=== PATIENT | male | born 1985 | race Caucasian/White ===

== ENCOUNTER → 2021-11-20 | Outpatient (CLI) | payer OTHER, SELFPAY | END | disposition home or self-care (01) | LOC: LABSPEC 13:16 | PROVIDERS: Referring Provider Physician Assistant Surgical; Visit Provider Physician Assistant Surgical | DX: Z11.52 Encounter for screening for COVID-19 (principal) | CPT/HCPCS: 87635; U0005; U0003 ==

== ENCOUNTER → 2021-11-21 | Outpatient (CLI) | payer OTHER, SELFPAY | END | disposition home or self-care (01) | LOC: LABSPEC 12:53 | PROVIDERS: Visit Provider Physician Assistant | DX: Z11.52 Encounter for screening for COVID-19 (principal) | CPT/HCPCS: 87635; U0005; U0003 ==

== ENCOUNTER → 2022-06-05 | Outpatient (CLI) | payer OTHER, SELFPAY ==
[2022-06-05 18:01] LABS: Absolute Lymphocyte Count 1.36 X10^3/uL (0.83-4.51); Absolute Neutrophil Count 2.1 X10^3/uL (2.0-7.7); Basophil# 0.03 X10^3/uL; Basophil% 0.7 % (0-1); Eosinophil# 0.08 X10^3/uL; Hematocrit 42.4 % (40-54); Hemoglobin 14.7 g/dL (13.0-16.5); Lymphocyte # 1.36 X10^3/ul (0.83-4.51); Lymphocyte % 33.5 % (19-41); Mean Corp Hgb Conc 34.7 g/dL (32-36); Mean Corpuscular Hgb 30.4 pg (27.0-32.0); Mean Corpuscular Volume 87.8 fL (80-94); Monocyte# 0.52 X10^3/uL; Monocyte% 12.8 % (0-10); NRBC Flagged by Analyzer 0 % (0-5); Neutrophil # 2.07 X10^3/uL (2.7-7.7); Platelet Count 246 K/mm3 (150-450); RBC Distribution Width CV 11.8 % (11.6-14.6); RBC Distribution Width SD 37.9 fl (35.1-43.9); Red Blood Count 4.83 M/mm3 (4.6-6.2); White Blood Count 4.1 K/mm3 (4.4-11.0)
[2022-06-05 18:44] LABS: Vitamin B12 454 pg/mL (211-911); Vitamin D,25 Hydroxy 44.4 ng/mL
[2022-06-05 18:46] LABS: ALB/GLOB Ratio 1.3 RATIO (0.9-2.4); AST(SGOT) 25 U/L (15-37); Alanine Aminotransfer ALT/SGPT 33 U/L (16-61); Albumin, Serum 4.1 g/dL (3.2-5.0); Alkaline Phosphatase 57 U/L (45-117); Anion Gap 6 (5-15); BUN 15 mg/dL (7-18); BUN/Creat Ratio 14.6 RATIO (10-20); Calcium,Total 8.6 mg/dL (8.5-10.1); Chloride 103 mmol/L (98-107); Creatinine, Serum 1.03 mg/dL (0.70-1.30); EST Glomerular Filtration Rate 88 mL/min (>60); Est Glom Filt Rate - Afr Amer 106 mL/min (>60); Globulin 3.1 g/dL (2.2-4.2); Glucose 89 mg/dL (74-106); Potassium 3.7 mmol/L (3.5-5.1); Protein, Total 7.2 g/dL (6.4-8.2); Sodium Level 138 mmol/L (136-145)
== END | disposition home or self-care (01) ==
LOC: MFPLAB 16:35
PROVIDERS: PCP Nurse Practitioner Family; Referring Provider Nurse Practitioner Family; Visit Provider Nurse Practitioner Family
DX: R53.83 Other fatigue (principal); N52.9 Male erectile dysfunction, unspecified
CPT/HCPCS: 36415; 80053; 82306; 82607; 84403; 84443; 85025

== ENCOUNTER 2025-02-07 12:27 | Day surgery (SDC) | payer OTHER, SELFPAY ==
[2025-02-07] VITALS (8 sets, daily range): BP systolic 104–137; BP diastolic 79–89; PULSE 66–80; RESP 16–20; TEMP 36.2–36.6; O2SAT 97–100; BMI 27.6
--- NOTE | 2025-02-07 13:06 | PCM.HP.STD ---
HPI - General General Date of Admission: 02/07/25 Date of Service: 02/07/25 Chief Complaint: EGD/ colonoscopy HPI Narrative The patient is a 39-year-old male who is being seen today for a colonoscopy. He recently underwent fecal occult blood testing of his stool as part of a yearly work physical. He was found to be positive for fecal occult blood. He denies any macey blood in his stools. No black or tarry stools. No family history of colon polyps or colon cancers. He states his bowel movements are generally quite regular he has never had a previous colonoscopy [facility] Medical History (Updated 02/03/25 @ 10:21 by Sonja Quintana) Anxiety Heartburn Non-smoker Occult blood in stools Home Medications ?Medication ?Instructions ?Recorded ?Last Taken ?Type NK 02/03/25 Unknown History Allergy/AdvReac Type Severity Reaction Status Date / Time No Known Allergies Allergy Verified 02/07/25 12:43 Surgical History [place] teeth extracted Social History Smoking Status: Never smoker alcohol intake: current alcohol intake frequency: holidays/special occasions only substance use type: does not use Vital Signs Vital Signs Vital Signs: 02/07/25 12:44 02/07/25 12:44 Temperature 97.9 F Temperature Source Temporal Pulse Rate 80 Respiratory Rate 16 Respiratory Pattern Normal Blood Pressure 137/87 H Blood Pressure Mean 103 Blood Pressure Source Monitor Blood Pressure Position Semi-Fowlers Blood Pressure Location Left Arm Pulse Ox 100 Oxygen Delivery Method Room Air Weight Weight: 208 lb 15.971 oz Body Mass Index (BMI) 27.6 Physical Exam Const alert, oriented x3 and no apparent distress Assessment & Plan Assessment/Plan (1) Occult blood in stools: PLAN: Plan EGD/colonoscopy today
--- NOTE | 2025-02-07 13:16 | PRE.ANES_ITS ---
ASA Classification* ASA Classification ASA Classification: 1 Assessment & Plan Anesthesia* Anesthesia Assessment Anesthesia Assessment: Discussed sedation and/or anesthesia options, risks, benefits, and alternatives with patient/parents/legal guardian/POA. Questions invited. The patient/parents/legal guardian/POA seems to understand and agrees to proceed with anesthesia plan. Reviewed the physical assessment, medical history, allergy history and patient home medications list prior to surgery/procedure/anesthetic and documented any changes. Performed airway and anesthesia risk assessments. Anesthesia Type Anesthesia Type: MAC History Source History Obtained from:: Patient and Chart Anesthesia Focused Assessment* Temperature: 97.9 F Pulse Rate: 80 Blood Pressure: 137/87 Respiratory Rate: 16 Pulse Ox: 100 Oxygen Delivery Method: Room Air Airway Assessment Mouth opens: >3 cm Mallampati Score: II Teeth Condition: Intact Neck Range of motion (ROM): Full ROM Focused Labs Anesthesia Preop lab: CBC WBC 3.8 K/mm3 (4.4-11.0) L 08/31/24 09:47 08/31/24 RBC 5.28 M/mm3 (4.6-6.2) 08/31/24 09:47 08/31/24 Hgb 15.9 g/dL (13.0-16.5) 08/31/24 09:47 08/31/24 Hct 46.6 % (40-54) 08/31/24 09:47 08/31/24 Plt Count 251 K/mm3 (150-450) 08/31/24 09:47 08/31/24 CHEMISTRY Potassium 4.2 mmol/L (3.5-5.1) 08/31/24 09:47 08/31/24 Sodium 137 mmol/L (136-145) 08/31/24 09:47 08/31/24 BUN 13 mg/dL (7-18) 08/31/24 09:47 08/31/24 Creatinine 1.10 mg/dL (0.70-1.30) 08/31/24 09:47 08/31/24 Glucose 96 mg/dL (74-106) 08/31/24 09:47 08/31/24 TSH 0.90 uIU/mL (0.358-3.74) 06/05/22 16:36 COAG Pre-Assessment Diagnosis/Proposed Procedure Planned Operative Procedure(s): COLONOSCOPY EGD Anesthesia History Anesthesia History - adult school counselor: Anesthesia History - adult school counselor Hx Hospitalization No 02/03/25 10:21 Any Problems With Anesthesia No 02/03/25 10:21 Cholinesterase deficiency No 02/03/25 10:21 You/Your Family Experience No 02/03/25 10:21 fever (hyperthermia) with Relationship Recent Exposure to Contagious No 02/07/25 12:44 Disease Does patient have nerve No 02/03/25 10:21 stimulator Patient instructed to have device shut off --Does patient have Pacemaker No 02/07/25 12:44 or ICD? When Was Last Pacemaker Check QUESTION #4 FULL TEXT: You/Your Family Experience fever (hyperthermia) with Anesthesia Last Oral Intake Last Oral intake: Last Oral Intake NPO since 10:30 02/07/25 12:44 Meds taken in AM with sips of No 02/07/25 12:44 water? Meds patient instructed to take am of surgery Any additional information?: Yes NPO since: 00:00 PONV PONV - adult school counselor: PONV - adult school counselor Female No 02/03/25 10:21 HX of Motion Sickness No 02/03/25 10:21 HX of N/V After Surgery No 02/03/25 10:21 Non-Smoker No 02/03/25 10:21 Duration of Surgery greater Yes 02/03/25 10:21 than 60 minutes Number of Risk Factors 1 02/03/25 10:21 PONV Score Low Risk 02/03/25 10:21 Height & Weight Height & Weight: Anesthesia: Height & Weight Height 6 ft 1 in 02/07/25 12:44 Weight: 94.8 kg 02/07/25 12:44 Body Mass Index (BMI) 27.6 02/07/25 12:44 Respiratory Assessment Respiratory Assessment - adult school counselor: Respiratory Tract Infection Hx - adult school counselor Hx Respiratory Tract Infection Yes: COUGH 02/03/25 10:21 STOP Sleep Apnea STOP Sleep Apnea - adult school counselor: STOP Sleep Apnea - adult school counselor Hx Hypertension No 02/03/25 10:21 Hx Sleep Apnea No 02/03/25 10:21 CPAP BIPAP Do you snore loudly (louder No 02/03/25 10:21 than talking or can be heard Do you often feel tired/ No 02/03/25 10:21 fatigued/ sleepy during daytime? Has anyone observed you stop No 02/03/25 10:21 breathing during sleep? STOP Results Negative 02/03/25 10:21 QUESTION #5 FULL TEXT : Do you snore loudly (louder than talking or can be heard through closed doors)? 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 Specify any problems Hx of Preganancy in last 3 N/A 02/03/25 10:21 Months Nurse Filling Out Transfusion JZOLLINGE 02/03/25 10:21 & Questions: Date: 02/03/25 02/03/25 10:21 Time: 10:26 02/03/25 10:21 Patient unable to answer at this time (ie. confused, unrespo /Reproduction History /Reproductive History - adult school counselor: /Reproductive Hx- adult school counselor Hx Now No 02/03/25 10:21 Gestational Age (in weeks): EDC: Hx Hx Para Hx Section SAB No 02/03/25 10:21 PFSH Medical History Anxiety Heartburn Non-smoker Occult blood in stools Home Medications ?Medication ?Instructions ?Recorded ?Last Taken ?Type NK 02/03/25 Unknown History Allergy/AdvReac Type Severity Reaction Status Date / Time No Known Allergies Allergy Verified 02/07/25 12:43 Surgical History [place] teeth extracted Social History Smoking Status: Never smoker alcohol intake: current alcohol intake frequency: holidays/special occasions only substance use type: does not use Review of Systems (Anesthesia) ROS Narrative System reviewed and no additional complaints, except as documented.
--- NOTE | 2025-02-07 13:30 | EGD_PTH ---
PATIENT: YAEL NICHOLSON LOC: EN U#:[id number] AGE/SX: 39/M ROOM: RE02/07/[address]: Dr. Howard Whelan MD : 1985 BED: DIS: 02/07/2025 SPEC #: [id number] RECD: 02/08/25 10:19 STATUS: ZULEIKA ROHITH #: [id number] JOSE: 02/07/25 13:[address]: Howard Whelan DEPT: SURGICAL PATHOLOGY RECD BY: Trev Denis ENTERED: 02/08/25 10:19 SP TYPE: EGD BIOPSY OTHR DR: Julienne Gruber MD Tissues: A - Gastric mucous membrane B - Esophagus, NOS C - COLON BIOPSY Procedures: Immunohistochemical Stains Surgery Specimen Level IV HEADER OPERATION: Colonoscopy with biopsy, EGD with biopsy PRE-OP DIAGNOSIS: Occult blood in stools TISSUE SUBMITTED: A- Antrum biopsy, B- Gastroesophageal junction biopsy, C- Sigmoid colon polyp biopsy MICROSCOPIC DIAGNOSIS A. Stomach, antrum, biopsy: * Active chronic gastritis. * IHC is POSITIVE for H pylori. B. Esophagus, GE junction, biopsy: * Benign squamous mucosa. * No columnar mucosa seen. C. Colon, sigmoid, polyp, biopsy: * Tubular adenoma. MICROSCOPIC DESCRIPTION Slides are reviewed. These tests were developed and their performance characteristics determined by [facility]. They may not have been cleared or approved by the U.S. Food and Drug Administration. The FDA has determined that such clearance or approval is not necessary. The above immunohistochemical/dualISH markers are ordered and reviewed by the Pathologist. GROSS DESCRIPTION A. Received in fixative is one container labeled with the patient's name and designated Antrum biopsy. The specimen consists of two irregular fragments of light jacinto soft tissue that in aggregate measure 0.6 x 0.3 x 0.1 cm. The specimen is totally submitted in one cassette. B. Received in fixative is one container labeled with the patient's name and designated GE junction biopsy. The specimen consists of one irregular fragment of light jacinto soft tissue that measures 0.7 x 0.2 x 0.2 cm. The specimen is totally submitted in one cassette. C. Received in fixative is one container labeled with the patient's name and designated Sigmoid colon polyp biopsy. The specimen consists of one irregular fragment of light jacinto soft tissue that measures 0.6 x 0.6 x 0.1 cm. The specimen is totally submitted in one cassette. 02/08/2025 CPT:[id number]
--- NOTE | 2025-02-07 14:11 | PCM.POST.ANE ---
Anesthesia: Postop Eval I Current Vital Signs Temperature: 97.9 F Pulse Rate: 78 Blood Pressure: 104/89 Respiratory Rate: 20 Pulse Ox: 99 Oxygen Delivery Method: Room Air Assessment Airway patent: Yes Spontaneous unlabored respirations: Yes Mental status: Awake and Calm nausea: No Vomiting: No Anesthesia Complication: No Fluid Hydration Crystalloid volume administer (ml): 30 Total IV fluid infused: 30 Progress Note Anesthesia document: Postop Eval 1 completed: Yes
--- NOTE | 2025-02-07 14:14 | OP.EGD_ITS ---
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 Patient has symptoms of acute heartburn. Complications: No immediate complications. Estimated blood loss: None. Procedure: Pre-Anesthesia Assessment: - Prior to the procedure, a History and Physical was performed, and patient medications and allergies were reviewed. The patient's tolerance of previous anesthesia was also reviewed. The risks and benefits of the procedure and the sedation options and risks were discussed with the patient. All questions were answered, and informed consent was obtained. Prior Anticoagulants: The patient has taken no anticoagulant or antiplatelet agents. ASA Grade Assessment: I - A normal, healthy patient. After reviewing the risks and benefits, the patient was deemed in satisfactory condition to undergo the procedure. After obtaining informed consent, the endoscope was passed under direct vision. Throughout the procedure, the patient's blood pressure, pulse, and oxygen saturations were monitored continuously. The gastroscope was introduced through the mouth, and advanced to the duodenal bulb. The upper GI endoscopy was accomplished without difficulty. The patient tolerated the procedure well. Moderate Sedation: See the other procedure note for documentation of moderate sedation with intraservice time. Scope In: 1:29:45 PM Scope Out: 1:35:43 PM Total Procedure Duration Time 0 hours 5 minutes 58 seconds Findings: The entire examined stomach was normal. Biopsies were taken with a cold forceps for Helicobacter pylori testing. The examined esophagus was normal. Mucosa was biopsied with a cold forceps for histology randomly at the gastroesophageal junction. Verification of patient identification for the specimen was done by the nurse using the patient's name, date and medical record number. Impression: - Normal stomach. Biopsied. - Normal esophagus. Biopsied. Recommendation: - Discharge patient to home (ambulatory). - Resume previous diet. - Continue present medications. Howard Whelan MD 02/07/2025 2:13:43 PM This report has been signed electronically. Number of Addenda: 0 Note Initiated On: 02/07/2025 1:05 PM
--- NOTE | 2025-02-07 14:14 | OP.CCLET_ITS ---
02/07/2025 Julienne Gruber Md Re : Upper GI endoscopy procedure for Cb Tucker Nivia Gruber This procedure was performed on Friday, February 07, 2025. My impressions and recommendations are as follows: Impressions : - Normal stomach. Biopsied. - Normal esophagus. Biopsied. Recommendations : - Discharge patient to home (ambulatory). - Resume previous diet. - Continue present medications. My findings are described in the full procedure note, which is enclosed. If I can be of further assistance, please feel free to contact me at . Sincerely, Howard Whelan MD 02/07/2025 2:13:43 PM This report has been signed electronically.
--- NOTE | 2025-02-07 14:18 | OP.COLON_ITS ---
Patient Name: Cb Tucker Procedure Date: 02/07/2025 1:36 PM Date of : 1985 Age: 39 Procedure: Colonoscopy Indications: Positive fecal immunochemical test Providers: Howard Whelan MD Referring MD: Howard Whelan MD Medicines: Monitored Anesthesia Care Patient Profile: Refer to note in patient chart for documentation of history and physical. Patient has symptoms of acute heartburn. Last Colonoscopy: none. The patient's first colonoscopy is today. Complications: No immediate complications. Estimated blood loss: Minimal. Procedure: Pre-Anesthesia Assessment: - Prior to the procedure, a History and Physical was performed, and patient medications and allergies were reviewed. The patient's tolerance of previous anesthesia was also reviewed. The risks and benefits of the procedure and the sedation options and risks were discussed with the patient. All questions were answered, and informed consent was obtained. Prior Anticoagulants: The patient has taken no anticoagulant or antiplatelet agents. ASA Grade Assessment: I - A normal, healthy patient. After reviewing the risks and benefits, the patient was deemed in satisfactory condition to undergo the procedure. After I obtained informed consent, the scope was passed under direct vision. Throughout the procedure, the patient's blood pressure, pulse, and oxygen saturations were monitored continuously. The adult colonoscope was introduced through the anus and advanced to the cecum, identified by appendiceal orifice and ileocecal valve. The ileocecal valve, appendiceal orifice, and rectum were photographed. The entire colon was well visualized. The colonoscopy was performed without difficulty. The patient tolerated the procedure well. The quality of the bowel preparation was adequate. Scope In: 1:38:08 PM Scope Withdrawal Time 0 hours 15 minutes 11 seconds Scope Out: 2:04:05 PM Total Procedure Duration Time 0 hours 25 minutes 57 seconds Findings: The perianal and digital rectal examinations were normal. A 3 mm polyp was found in the sigmoid colon. The polyp was semi-sessile. The polyp was removed with a cold biopsy forceps. Resection and retrieval were complete. Verification of patient identification for the specimen was done by the nurse using the patient's name, date and medical record number. The exam was otherwise without abnormality on direct and retroflexion views. Impression: - One 3 mm polyp in the sigmoid colon, removed with a cold biopsy forceps. Resected and retrieved. - The examination was otherwise normal on direct and retroflexion views. Recommendation: - Discharge patient to home (ambulatory). - High fiber diet. - Continue present medications. - Await pathology results. - Repeat colonoscopy in 5 years for surveillance. - Return to my office PRN. Procedure Code(s): --- Professional --- 24827, Colonoscopy, flexible; with biopsy, single or multiple Diagnosis Code(s): --- Professional --- R19.5, Other fecal abnormalities D12.5, Benign neoplasm of sigmoid colon CPT copyright 2021 [employer]. All rights reserved. The codes documented in this report are preliminary and upon core cleaner review may be revised to meet current compliance requirements. Howard Whelan MD 02/07/2025 2:18:07 PM This report has been signed electronically. Number of Addenda: 0 Note Initiated On: 02/07/2025 1:36 PM
--- NOTE | 2025-02-07 14:19 | OP.CCLET_ITS ---
02/07/2025 Julienne Gruber Md Re : Colonoscopy procedure for Cb Gonzáles Allyn This procedure was performed on Friday, February 07, 2025. My impressions and recommendations are as follows: Impressions : - One 3 mm polyp in the sigmoid colon, removed with a cold biopsy forceps. Resected and retrieved. - The examination was otherwise normal on direct and retroflexion views. Recommendations : - Discharge patient to home (ambulatory). - High fiber diet. - Continue present medications. - Await pathology results. - Repeat colonoscopy in 5 years for surveillance. - Return to my office PRN. My findings are described in the full procedure note, which is enclosed. If I can be of further assistance, please feel free to contact me at . Sincerely, Howard Whelan MD 02/07/2025 2:18:07 PM This report has been signed electronically.
--- NOTE | 2025-02-07 17:59 | POSTOPAN2_ITS ---
Anesthesia Postop Eval I Sum Postop Eval Completion status Anesthesia document: Postop Eval 1 completed: Yes Anesthesia Postop Eval I Summary Anesthesia Postop Eval I Summary: Anesthesia Postop Eval I: Assessment Summary Airway patent Yes 02/07/25 14:12 REAL [email or web address] Spontaneous unlabored Yes 02/07/25 14:12 REAL [email or web address] respirations Mental status Awake,Calm 02/07/25 14:12 REAL [email or web address] nausea No 02/07/25 14:12 REAL [email or web address] Vomiting No 02/07/25 14:12 [email or web address] Anesthesia Postop Eval I: Fluid Summary Crystalloid volume administer 30 02/07/25 14:12 [email or web address] (ml) Colloids volume administered ( ml) Blood Product volume administered (ml) Total IV fluid infused 30 02/07/25 14:12 [email or web address] Anesthesia Postop Eval I: Summary Notes Anesthesia Complication No 02/07/25 14:12 [email or web address] Anesthesia Complication Comment: Post-operative progress note Anesthesia: Postop Eval II Evaluation Mental status: Awake and Calm Pain Level: 0 nausea: No Vomiting: No Complications Anesthesia Complication: No
--- NOTE | 2025-02-07 17:59 | PCM.POSTANE2 ---
Anesthesia Postop Eval I Sum Postop Eval Completion status Anesthesia document: Postop Eval 1 completed: Yes Anesthesia Postop Eval I Summary Anesthesia Postop Eval I Summary: Anesthesia Postop Eval I: Assessment Summary Airway patent Yes 02/07/25 14:12 [email or web address] Spontaneous unlabored Yes 02/07/25 14:12 [email or web address] respirations Mental status Awake,Calm 02/07/25 14:12 [email or web address] nausea No 02/07/25 14:12 [email or web address] Vomiting No 02/07/25 14:12 [email or web address] Anesthesia Postop Eval I: Fluid Summary Crystalloid volume administer 30 02/07/25 14:12 [email or web address] (ml) Colloids volume administered ( ml) Blood Product volume administered (ml) Total IV fluid infused 30 02/07/25 14:12 [email or web address] Anesthesia Postop Eval I: Summary Notes Anesthesia Complication No 02/07/25 14:12 [email or web address] Anesthesia Complication Comment: Post-operative progress note Anesthesia: Postop Eval II Evaluation Mental status: Awake and Calm Pain Level: 0 nausea: No Vomiting: No Complications Anesthesia Complication: No
== END 2025-02-07 14:57 | disposition home or self-care (01) ==
LOC: EN 12:28 → AC 12:29
PROVIDERS: PCP Family Medicine; Referring Provider Surgery; Visit Provider Surgery
PROC: 0DJD8ZZ Inspection of Lower Intestinal Tract, Via Natural or Artificial Opening Endoscopic (ICD-10-PCS; CPT 45378; principal; 2025-02-07 13:25)
DX: K29.50 Unspecified chronic gastritis without bleeding (principal); B96.81 Helicobacter pylori [H. pylori] as the cause of diseases classified elsewhere; D12.5 Benign neoplasm of sigmoid colon; R12 Heartburn; Z79.899 Other long term (current) drug therapy
CPT/HCPCS: 45380; 43239; 88305; 88342; J2405

== ENCOUNTER 2025-04-10 15:27 | Emergency (ER) | payer OTHER, SELFPAY ==
[2025-04-10] VITALS (13 sets, daily range): BP systolic 100–148; BP diastolic 64–91; PULSE 59–118; RESP 10–20; TEMP 36.1–36.8; O2SAT 95–100; BMI 28.8
--- NOTE | 2025-04-10 15:51 | EKG12_ITS ---
Test Reason : NEW ONSET AFIB Blood Pressure : */* mmHG Vent. Rate : 129 BPM Atrial Rate : * BPM P-R Int : * ms QRS Dur : 90 ms QT Int : 308 ms P-R-T Axes : * 94 0 degrees QTcB Int : 451 ms Atrial fibrillation with rapid ventricular response Rightward axis Abnormal ECG Confirmed by FANG DOUGHERTY, MARTA ([id number]), development editor BRITTANY CRESPO ([id number]) on 04/11/2025 9:29:31 AM Referred By: Duane Ashby Confirmed By: MARTA HEADLEY MD
[2025-04-10 16:00] LABS: Absolute Lymphocyte Count 1.82 X10^3/uL (0.83-4.51); Absolute Neutrophil Count 3.7 X10^3/uL (2.0-7.7); Basophil# 0.04 X10^3/uL; Basophil% 0.6 % (0-1); Eosinophils% 3.2 % (0-5); Hematocrit 44.7 % (40-54); Hemoglobin 15.8 g/dL (13.0-16.5); Lymphocyte # 1.82 X10^3/ul (0.83-4.51); Lymphocyte % 28.7 % (19-41); Mean Corp Hgb Conc 35.3 g/dL (32-36); Mean Corpuscular Hgb 30.8 pg (27.0-32.0); Mean Corpuscular Volume 87.1 fL (80-94); Mean Platelet Vol. 10.1 fl (6.2-12.0); Monocyte# 0.56 X10^3/uL; Monocyte% 8.8 % (0-10); NRBC Flagged by Analyzer 0 % (0-5); Neutrophil % 58.4 % (47-70); Platelet Count 276 K/mm3 (150-450); RBC Distribution Width CV 11.6 % (11.6-14.6); RBC Distribution Width SD 37.5 fl (35.1-43.9); Red Blood Count 5.13 M/mm3 (4.6-6.2); White Blood Count 6.3 K/mm3 (4.4-11.0)
--- NOTE | 2025-04-10 16:00 | RAD_ITS ---
PROCEDURE: CHEST PA AND LATERAL 04/10/2025 REASON FOR EXAM: NEW A. FIB TECHNIQUE: Frontal and lateral views of the chest. COMPARISON: None FINDINGS: Hardware: None Heart: The heart size is normal. Mediastinum: The mediastinal contour is unremarkable. Lungs: The lungs are clear. Bones: The bones are unremarkable. RAD/Chest PA and Lateral IMPRESSION: NO ACUTE FINDINGS. Reading Location: [facility]
[2025-04-10] MEDS: 0.9% Normal Saline (1000mL) 1,000 ML 999 ML IV (16:01)
--- NOTE | 2025-04-10 16:07 | ED.VIS.CHEST ---
HPI History of Present Illness Chief Complaint: Palpitations Narrative Narrative: Patient is a 39-year-old male past medical history anxiety, GERD who presented to the emergency department chief complaint of palpitations. Patient states that he woke up this morning noted that he felt fluttering in his chest and had some shortness of breath associate with this when he went up stairs. 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 Patient states that otherwise he been feeling fine he went to bed feeling well. He states occasionally he will have feeling of an extra beat in his chest but this has been going off and on for a significant mount time. Patient denies recent travel history denies any history of blood clots. [facility] Medical History Anxiety Heartburn Non-smoker Occult blood in stools Home Medications ?Medication ?Instructions ?Recorded ?Last Taken ?Type metoprolol tartrate 50 mg tablet 50 mg PO DAILY #30 tabs 04/10/25 Unknown Rx Allergy/AdvReac Type Severity Reaction Status Date / Time No Known Allergies Allergy Verified 04/10/25 15:27 Family History no significant family his Surgical History [place] teeth extracted Social History Smoking Status: Never smoker alcohol intake: current alcohol intake frequency: holidays/special occasions only substance use type: does not use ROS ROS ED ROS Narrative Constitutional: Denies any fevers, chills, headaches Eyes: Denies change in vision double vision blurry vision Cardiovascular: Complains of palpitations as noted above denies chest pain Respiratory: Complains of shortness of breath as noted above denies coughing Abdomen: Denies abdominal pain nausea vomit diarrhea : Denies any urinary symptoms Neurological: Denies numbness, weakness, tingling Musculoskeletal: Denies back pain Skin: Denies any rashes or lesions EXAM Physical Exam Narrative Exam Narrative: General: Patient is lying in bed rest comfortably did not appear to be acute distress Head: Atraumatic, normocephalic Eyes: PERRL bilaterally, EOMI bilateral, no conjunctival injection noted Neck: Soft, supple, trachea midline Cardiovascular: Patient has an irregular irregular rhythm and tachycardic no murmurs gallops or rubs noted Respiratory: Clear to auscultation bilateral Abdomen: Soft, nondistended, nontender to palpation Extremities: +5/5 strength in the bilateral upper and lower extremity, radial pulse +2/4 in the bilateral extremities Neurological: Patient follow commands knew that he was at [facility] years 2024 Skin: Warm, dry, intact no rashes or lesions noted Const Vital Signs: 04/10/25 15:27 04/10/25 15:55 04/10/25 16:15 Temperature 97 F L Temperature Source Temporal Pulse Rate 112 H 118 H Pulse Rate [1 (Initial Baseline)] Pulse Rate [2] Pulse Rate [3] Pulse Rate [4] Respiratory Rate 20 H Respiratory Rate [1 (Initial Baseline)] Respiratory Rate [2] Respiratory Rate [3] Respiratory Rate [4] Blood Pressure 148/89 H 131/88 H Blood Pressure [1 (Initial Baseline)] Blood Pressure [2] Blood Pressure [3] Blood Pressure [4] Blood Pressure Mean 108 102 Baseline BP Pulse Ox 100 99 Oxygen Delivery Method Room Air Room Air Room Air Oxygen Delivery Method [1 (Initial Baseline)] Oxygen Delivery Method [2] Oxygen Delivery Method [3] Oxygen Delivery Method [4] Oxygen Flow Rate (L/min) Oxygen Flow Rate (L/min) [1 (Initial Baseline)] Oxygen Flow Rate (L/min) [2] Oxygen Flow Rate (L/min) [3] EtCo2 - Document during CPR and with ROSC EtCo2 - Document during CPR and with ROSC [1 (Initial Baseline)] EtCo2 - Document during CPR and with ROSC [2] EtCo2 - Document during CPR and with ROSC [3] EtCo2 - Document during CPR and with ROSC [4] 04/10/25 16:26 04/10/25 17:39 04/10/25 18:59 Temperature Temperature Source Pulse Rate 80 59 L 94 Pulse Rate [1 (Initial Baseline)] Pulse Rate [2] Pulse Rate [3] Pulse Rate [4] Respiratory Rate 16 Respiratory Rate [1 (Initial Baseline)] Respiratory Rate [2] Respiratory Rate [3] Respiratory Rate [4] Blood Pressure 131/88 H 113/73 119/71 Blood Pressure [1 (Initial Baseline)] Blood Pressure [2] Blood Pressure [3] Blood Pressure [4] Blood Pressure Mean 102 86 87 Baseline BP Pulse Ox 99 98 99 Oxygen Delivery Method Room Air Room Air Room Air Oxygen Delivery Method [1 (Initial Baseline)] Oxygen Delivery Method [2] Oxygen Delivery Method [3] Oxygen Delivery Method [4] Oxygen Flow Rate (L/min) Oxygen Flow Rate (L/min) [1 (Initial Baseline)] Oxygen Flow Rate (L/min) [2] Oxygen Flow Rate (L/min) [3] EtCo2 - Document during CPR and with ROSC EtCo2 - Document during CPR and with ROSC [1 (Initial Baseline)] EtCo2 - Document during CPR and with ROSC [2] EtCo2 - Document during CPR and with ROSC [3] EtCo2 - Document during CPR and with ROSC [4] 04/10/25 20:26 04/10/25 20:26 04/10/25 20:58 Temperature Temperature Source Pulse Rate 74 83 Pulse Rate [1 (Initial Baseline)] Pulse Rate [2] Pulse Rate [3] Pulse Rate [4] Respiratory Rate 13 Respiratory Rate [1 (Initial Baseline)] Respiratory Rate [2] Respiratory Rate [3] Respiratory Rate [4] Blood Pressure 121/75 H 127/89 H Blood Pressure [1 (Initial Baseline)] Blood Pressure [2] Blood Pressure [3] Blood Pressure [4] Blood Pressure Mean 101 Baseline BP 121/75 Pulse Ox 100 Oxygen Delivery Method Room Air Oxygen Delivery Method [1 (Initial Baseline)] Oxygen Delivery Method [2] Oxygen Delivery Method [3] Oxygen Delivery Method [4] Oxygen Flow Rate (L/min) Oxygen Flow Rate (L/min) [1 (Initial Baseline)] Oxygen Flow Rate (L/min) [2] Oxygen Flow Rate (L/min) [3] EtCo2 - Document during CPR and with ROSC 42 EtCo2 - Document during CPR and with ROSC [1 (Initial Baseline)] EtCo2 - Document during CPR and with ROSC [2] EtCo2 - Document during CPR and with ROSC [3] EtCo2 - Document during CPR and with ROSC [4] 04/10/25 21:04 04/10/25 21:17 04/10/25 21:22 Temperature Temperature Source Pulse Rate 67 63 Pulse Rate [1 (Initial Baseline)] 84 Pulse Rate [2] 84 Pulse Rate [3] 84 Pulse Rate [4] 73 Respiratory Rate 10 L 16 Respiratory Rate [1 (Initial Baseline)] 11 L Respiratory Rate [2] 11 L Respiratory Rate [3] 11 L Respiratory Rate [4] 12 Blood Pressure 127/91 H 120/80 Blood Pressure [1 (Initial Baseline)] 129/77 H Blood Pressure [2] 129/77 H Blood Pressure [3] 129/77 H Blood Pressure [4] 100/64 Blood Pressure Mean Baseline BP Pulse Ox 95 95 Oxygen Delivery Method Room Air Room Air Oxygen Delivery Method [1 (Initial Baseline)] Nasal Cannula Oxygen Delivery Method [2] Nasal Cannula Oxygen Delivery Method [3] Nasal Cannula Oxygen Delivery Method [4] Room Air Oxygen Flow Rate (L/min) 94 Oxygen Flow Rate (L/min) [1 (Initial Baseline)] 2 Oxygen Flow Rate (L/min) [2] 2 Oxygen Flow Rate (L/min) [3] 2 EtCo2 - Document during CPR and with ROSC EtCo2 - Document during CPR and with ROSC [1 (Initial Baseline)] 39 EtCo2 - Document during CPR and with ROSC [2] 39 EtCo2 - Document during CPR and with ROSC [3] 43 EtCo2 - Document during CPR and with ROSC [4] 43 04/10/25 21:27 04/10/25 22:12 Temperature Temperature Source Pulse Rate 63 61 Pulse Rate [1 (Initial Baseline)] Pulse Rate [2] Pulse Rate [3] Pulse Rate [4] Respiratory Rate 15 18 Respiratory Rate [1 (Initial Baseline)] Respiratory Rate [2] Respiratory Rate [3] Respiratory Rate [4] Blood Pressure 115/81 H 127/78 H Blood Pressure [1 (Initial Baseline)] Blood Pressure [2] Blood Pressure [3] Blood Pressure [4] Blood Pressure Mean 94 Baseline BP Pulse Ox 95 99 Oxygen Delivery Method Room Air Room Air Oxygen Delivery Method [1 (Initial Baseline)] Oxygen Delivery Method [2] Oxygen Delivery Method [3] Oxygen Delivery Method [4] Oxygen Flow Rate (L/min) Oxygen Flow Rate (L/min) [1 (Initial Baseline)] Oxygen Flow Rate (L/min) [2] Oxygen Flow Rate (L/min) [3] EtCo2 - Document during CPR and with ROSC EtCo2 - Document during CPR and with ROSC [1 (Initial Baseline)] EtCo2 - Document during CPR and with ROSC [2] EtCo2 - Document during CPR and with ROSC [3] EtCo2 - Document during CPR and with ROSC [4] MDM MDM MDM Narrative Medical decision making narrative: Patient is a 39-year-old male who presented to the emerged part with a chief complaint of palpitations. On the differential diagnosis includes but not limited to atrial fibrillation with rapid ventricular response, PVCs, PACs, ACS. Once workup is obtained reviewed he will be reevaluated. Patient be given 5 mg IV Lopressor patient be given IV fluids. Patient's CBC was reviewed showed no evidence leukocytosis white blood count normal at 6.3, hemoglobin 15.8, plate count was noted be 276. Patient sodium normal 140, potassium of 4.1, creatinine normal at 1.05. Patient's troponin was 11 and 10 respectively, proBNP normal at 117. Patient TSH normal at 0.74, free T4 and T3 at 1.40 and 3.2 respectively. Patient's EKG reviewed and showed atrial fibrillation with a rate of 129 beats per minutes. Patient was given 5 mg of IV Lopressor once again. Patient chest x-ray reviewed by myself by radiology which showed no acute cardiopulmonary processes. Given the patient's largely unremarkable thus far and he is new onset A-fib RVR I ordered D-dimer which was elevated to 1.27 therefore CTA of his chest was added on. Patient CTA of his chest reviewed showed no evidence of acute pulmonary embolism. Patient remains in atrial fibrillation however rate is controlled after IV Lopressor will attempt a dose of Cardizem bolus of 25 mg given he will be observed. I did discuss case with on-call flatwork washer Dr. Nielson who states that if the patient goes back into normal sinus rhythm he can be discharged on metoprolol 50 mg daily and follow-up with them in the outpatient setting. He states that he does not need any anticoagulation Patient remained in A-fib despite 2 separate medications therefore it was ultimately discussed with the patient at bedside to sedate and cardiovert him. Patient was cardioverted with 130 mg of propofol 100 mcg of fentanyl at 200 J. Repeat EKG was performed that showed sinus rhythm rate of 69 bpm. Once again the patient just started with his symptoms this morning therefore he was in A-fib for less than 24 hours. Patient tolerated procedure well he will be observed here. Patient has remained in sinus rhythm status post cardioversion approximately an hour and 15 minutes post sedation and cardioversion. Patient tolerated oral intake and is back to his baseline. He is advised not to make any life altering decisions within the next 24 hours as he received propofol. He was advised to return with worsening symptoms any concerns and take the medications as prescribed that sent to the pharmacy. He is also encouraged to follow-up his primary care physician. is also agreeable this plan at bedside all question concerns answered discharged home in stable condition Critical care time 51 minutes Lab Data Labs: Laboratory Results - last 24 hr 04/10/25 04/10/25 04/10/25 15:40 17:20 17:40 WBC 6.3 RBC 5.13 Hgb 15.8 Hct 44.7 MCV 87.1 MCH 30.8 MCHC 35.3 RDW Std Deviation 37.5 RDW Coeff of [place]ileth 11.6 Plt Count 276 MPV 10.1 Immature Gran % (Auto) 0.300 Neut % (Auto) 58.4 Lymph % (Auto) 28.7 [place] % (Auto) 8.8 Eos % (Auto) 3.2 Baso % (Auto) 0.6 Absolute Neuts (auto) 3.7 Absolute Lymphs (auto) 1.82 Nucleated RBC % 0 D-Dimer Quant (PE/DVT) 1.27 H* Sodium 140 Potassium 4.1 Chloride 103 Carbon Dioxide 27.1 Anion Gap 11 BUN 18 Creatinine 1.05 Estim Creat Clear Calc 119.32 Est GFR (MDRD) Non-Af 94 BUN/Creatinine Ratio 17.0 Glucose 95 Calcium 9.6 Troponin T High Sens 11 Troponin T Hi Sens 4Hr 10 NT pro BNP II 117 TSH 0.741 Free T4 1.40 Free T3 pg/dL 3.2 Radiography Diagnostic Testing: Clinical Impression(s) from Imaging Studies Chest X-Ray 04/10/25 16:00 IMPRESSION: NO ACUTE FINDINGS. Reading Location: [facility] Chest CTA 04/10/25 18:07 IMPRESSION: NORMAL CHEST CTA. NO EVIDENCE OF ACUTE PULMONARY EMBOLISM. Reading Location: [facility] Procedures Procedural Sedation normal : Consent Signed: Yes Any Problems With Anesthesia: No You/Your family experience fever (hyperthermia) w/anesthesia: No Sedation medication: Propofol Route: IV Maliampati Score: Class II ASA Classification: E Discharge Plan Triage Chief Complaint: Palpitations ED Provider: Duane Ashby Dx/Rx/DC Orders Clinical Impression: Atrial fibrillation with rapid ventricular response, Heart palpitations Prescriptions: New metoprolol tartrate 50 mg tablet 50 mg PO DAILY Qty: 30 0RF Primary Care Provider: Julienne Gruber Referrals: Julienne Gruber MD [Primary Care Provider] - Alexis Nielson MD [Med Staff - Active Staff] - Activity Restrictions/Additional Instructions: Follow-up with your primary care physician outpatient setting. Follow-up with the flatwork washer that you referred to as well. Take prescriptions are sent to your pharmacy as prescribed. Return if worsening symptoms or concerns. Do not make any life altering decisions over the next 24 hours as you received propofol for sedation. Print Language: Malaysian Disposition Disposition: Home, Self Care
[2025-04-10] MEDS: Metoprolol Tartrate 5 MG/5 ML Vial IV (16:22)
[2025-04-10 16:24] LABS: Anion Gap 11 (5-15); BUN 18 mg/dL (4-19); Calcium,Total 9.6 mg/dL (7.6-11.0); Carbon Dioxide 27.1 mmol/L (21.0-32.0); Chloride 103 mmol/L (98-108); Creatinine, Serum 1.05 mg/dL (0.70-1.20); EST Glomerular Filtration Rate 94 (>60); Estimated Creatinine Clearance 119.32 ml/min (50-250); Glucose 95 mg/dL (70-99); Potassium 4.1 mmol/L (3.3-5.1); Pro- Brain NATRIURETIC PEPTIDE 117 pg/mL (<=450); Sodium Level 140 mmol/L (133-145); Troponin T High Sensitivity 11 ng/L (<=22)
--- NOTE | 2025-04-10 16:52 | EKG12_ITS ---
Test Reason : REPEAT Blood Pressure : */* mmHG Vent. Rate : 92 BPM Atrial Rate : * BPM P-R Int : * ms QRS Dur : 94 ms QT Int : 352 ms P-R-T Axes : * 87 10 degrees QTcB Int : 435 ms Atrial fibrillation Abnormal ECG Confirmed by FANG DOUGHERTY, MARTA ([id number]), department editor BRITTANY CRESPO ([id number]) on 04/11/2025 9:29:42 AM Referred By: Duane Ashby Confirmed By: MARTA HEADLEY MD
[2025-04-10 17:11] LABS: Free T3 3.2 pg/mL (2.18-3.98); Thyroid Stim Hormone (TSH) 0.741 uIU/mL (0.300-4.200)
[2025-04-10] MEDS: dilTIAZem 25 MG/5 ML Vial IV BOLUS (17:21)
[2025-04-10 17:56] LABS: D-Dimer Quantitative (DVT/PE) 1.27 FEU/ug/m (0.27-0.49)
--- NOTE | 2025-04-10 18:07 | CT_ITS ---
PROCEDURE: CTA CHEST W/WO CONTRAST 04/10/2025 REASON FOR EXAM: NEW A. FIB TECHNIQUE: CTA axial imaging of the chest with intravenous contrast. Multiplanar and multisequence images were obtained. PATIENT PREPARATION: Per protocol CONTRAST: Omnipaque 350 VOLUME: 100 mL Not Provided Gauge IV One or more dose reduction techniques were used (e.g., Automated exposure control, adjustment of the mA and/or kV according to patient size, use of iterative reconstruction technique). COMPARISON: None FINDINGS: Hardware: None Lymph nodes: No suspicious adenopathy. Heart: No cardiomegaly. No pericardial effusion. No coronary artery calcifications. Thoracic Aorta: No thoracic aortic aneurysm or dissection. Pulmonary Vessels: No large central pulmonary emboli are identified. Contrast timing is suboptimal for evaluation of more distal branches. Most Proximal Level of Embolus (if embolus present): None Lungs and Airways: The lungs are normally expanded and clear. Pleura: No pleural effusion. No pneumothorax. Upper Abdomen: Visualized portions of the upper abdominal viscera are unremarkable. Bones: Bone windows are unremarkable. CT/CTA Chest W/WO Contrast IMPRESSION: NORMAL CHEST CTA. NO EVIDENCE OF ACUTE PULMONARY EMBOLISM. Reading Location: [facility]
[2025-04-10 18:20] LABS: Troponin T High Sens 4 HR 10 ng/L (<=22)
[2025-04-10] MEDS: Propofol 200 MG/20 ML Vial IV BOLUS (20:27)
[2025-04-10] MEDS: fentaNYL 100 MCG/2 ML Ampul IV (20:27)
--- NOTE | 2025-04-10 21:00 | EKG12_ITS ---
Test Reason : RHYTHM CONVERSION Blood Pressure : */* mmHG Vent. Rate : 69 BPM Atrial Rate : 69 BPM P-R Int : 162 ms QRS Dur : 94 ms QT Int : 388 ms P-R-T Axes : 60 94 34 degrees QTcB Int : 415 ms Normal sinus rhythm Rightward axis Borderline ECG Confirmed by FANG DOUGHERTY, MARTA ([id number]), supervising editor trailer BRITTANY CRESPO ([id number]) on 04/11/2025 9:29:08 AM Referred By: Duane Ashby Confirmed By: MARTA HEADLEY MD
== END 2025-04-10 22:48 | disposition home or self-care (01) ==
PROVIDERS: Emergency Provider Emergency Medicine; PCP Family Medicine; Referring Provider Emergency Medicine; Visit Provider Emergency Medicine
DX: I48.91 Unspecified atrial fibrillation (principal); F41.9 Anxiety disorder, unspecified; K21.9 Gastro-esophageal reflux disease without esophagitis
CPT/HCPCS: 71046; 71275; 80048; 83880; 84439; 84443; 84481; 84484; 85025; 85379; 93005; 96361; 96374; 96375; 99283; Q9967; A4216

== ENCOUNTER → 2025-05-31 | Outpatient (CLI) | payer OTHER, SELFPAY ==
--- NOTE | 2025-05-31 08:04 | ECHOD_ITS ---
Reason For Study Reason For Study: AFib/Flutter Procedure This was a 2D Doppler, Color Flow transthoracic echocardiogram. Myocardial strain analysis was performed in this exam to aid in the assessment of cardiac function. Exam performed in department. Left Ventricle Normal LV size. The global longitudinal strain = -16.6% (borderline). The left ventricular ejection fraction is 50 %. There is mild global hypokinesis of the left ventricle. Right Ventricle Normal RV size. Normal systolic function. Atria Normal left atrium. Normal right atrium. Mitral Valve Normal mitral valve. Mild (1+) eccentric mitral valve insufficiency. Tricuspid Valve Normal tricuspid valve. Aortic Valve Trisinus/trileaflet aortic valve. Pulmonic Valve Normal pulmonic valve. Great Vessels Normal aortic root. The pulmonary artery is normal size. Inferior vena cava collapse with sniff. Pericardium/Pleural No pericardial effusion. MMode/2D Measurements & Calculations LVIDd: 5.7 cm IVSd: 1.1 cm Ao root diam: 3.5 cm LVIDs: 4.3 cm LVPWd: 1.0 cm RVDd: 4.6 cm FS: 24.4 % LAV(MOD-bp): 66.3 ml LVAd ap4: 40.4 cm2 LVAd ap2: 40.7 cm2 LAV(MOD-bp) Indexed: 29.9 ml/m2 LVLd ap4: 9.8 cm LVLd ap2: 9.6 cm LAV(MOD-sp2): 74.1 ml EDV(MOD-sp4): 138.8 ml EDV(MOD-sp2): 143.6 ml LAV(MOD-sp4): 49.4 ml EDV(sp4-el): 140.8 ml EDV(sp2-el): 146.5 ml LVAs ap4: 26.3 cm2 LVAs ap2: 26.2 cm2 LVLs ap4: 8.4 cm LVLs ap2: 8.5 cm ESV(MOD-sp4): 67.1 ml ESV(MOD-sp2): 68.4 ml ESV(sp4-el): 69.5 ml ESV(sp2-el): 68.4 ml EF(MOD-sp4): 51.7 % EF(MOD-sp2): 52.4 % EF(sp4-el): 50.6 % SV(MOD-sp4): 71.7 ml SV(MOD-sp2): 75.2 ml SV(sp4-el): 71.3 ml SI(MOD-sp4): 32.3 ml/m2 SI(MOD-sp2): 33.9 ml/m2 LA A4 area: 19.9 cm2 LA dimension(2D): 3.6 cm RA A4 area: 18.6 cm2 TAPSE: 2.1 cm Time Measurements MV dec time: 0.17 sec Doppler Measurements & Calculations MV E max dm: 57.7 cm/sec Lat Peak E' Dm: 14.1 cm/sec Med Peak E' Dm: 13.0 cm/sec MV A max dm: 43.7 cm/sec E/E' lat: 4.1 E/E' med: 4.4 MV E/A: 1.3 MV V2 max: 59.5 cm/sec MV P1/2t max dm: 60.2 cm/sec Ao V2 max: 91.1 cm/sec MV max P.4 mmHg MV P1/2t: 60.1 msec Ao max P.3 mmHg MV V2 mean: 35.5 cm/sec Ao V2 mean: 63.7 cm/sec MV mean P.59 mmHg MV dec slope: 293.0 cm/sec2 Ao mean P.9 mmHg MV V2 VTI: 22.1 cm MVA(P1/2t): 3.7 cm2 Ao V2 VTI: 19.4 cm AV (velocity ratio): 0.96 LV V1 max: 90.9 cm/sec PA V2 max: 91.8 cm/sec LV V1 max P.3 mmHg PA V2 mean: 62.1 cm/sec LV V1 mean P.7 mmHg LV V1 mean: 60.9 cm/sec LV V1 VTI: 18.7 cm ECHO/Echo Complete Interpretation Summary The global longitudinal strain = -16.6% (borderline). Normal LV size. There is mild global hypokinesis of the left ventricle. The left ventricular ejection fraction is 50 %. Mild (1+) eccentric mitral valve insufficiency. Ordering Physician: Alexis Nielson Referring Physician: Alexis Nielson Performed By: Octavio Holloway RCS
== END | disposition home or self-care (01) ==
LOC: CVS 08:01
PROVIDERS: PCP Family Medicine; Referring Provider Internal Medicine Cardiovascular Disease; Visit Provider Internal Medicine Cardiovascular Disease
DX: I48.91 Unspecified atrial fibrillation (principal)
CPT/HCPCS: 93306

== ENCOUNTER → 2025-10-18 | Outpatient (CLI) | payer OTHER, SELFPAY ==
--- NOTE | 2025-10-18 08:59 | ECHOL_ITS ---
Reason For Study Reason For Study: Cardiomyopathy Procedure This was a limited 2D transthoracic echocardiogram. Myocardial strain analysis was performed in this exam to aid in the assessment of cardiac function. Exam performed in department. Left Ventricle Normal LV size. Left ventricular systolic function is normal. The estimated ejection fraction is 54 %. No regional wall motion abnormalities noted. Right Ventricle Normal RV size. Normal systolic function. Atria Normal left atrium. Normal right atrium. Mitral Valve Normal mitral valve. Tricuspid Valve Normal tricuspid valve. Trivial tricuspid valve insufficiency. Aortic Valve Normal aortic valve. Trisinus/trileaflet aortic valve. Pulmonic Valve Normal pulmonic valve. Great Vessels Normal aortic root. The pulmonary artery is normal size. Inferior vena cava collapse with respiration. Pericardium/Pleural No pericardial effusion. MMode/2D Measurements & Calculations LVIDd: 5.8 cm IVSd: 0.93 cm Ao root diam: 3.1 cm LVIDs: 4.1 cm LVPWd: 0.98 cm FS: 28.7 % LVAd ap4: 41.2 cm2 SV(MOD-sp4): 74.6 ml SV(sp4-el): 77.2 ml LVLd ap4: 9.8 cm SI(MOD-sp4): 33.6 ml/m2 EDV(MOD-sp4): 143.3 ml EDV(sp4-el): 146.8 ml LVAs ap4: 26.1 cm2 LVLs ap4: 8.3 cm ESV(MOD-sp4): 68.8 ml ESV(sp4-el): 69.7 ml EF(MOD-sp4): 52.0 % EF(sp4-el): 52.6 % Doppler Measurements & Calculations Ao V2 max: 123.5 cm/sec TR max ewa: 181.1 cm/sec Ao max P.1 mmHg TR max P.1 mmHg Ao V2 mean: 90.8 cm/sec Ao mean P.5 mmHg Ao V2 VTI: 26.3 cm ECHO/Echo, Limited Study Interpretation Summary Normal LV size. Left ventricular systolic function is normal. The estimated ejection fraction is 54 %. The global longitudinal strain is borderline abnormal. Compared to previous unique dy, the left ventricular systolic function has improved.. The global longitudinal strain = -16.9% (abnormal). Ordering Physician: Belkys Newby Referring Physician: Julienne Gruber Performed By: Chelly Brasher, SHAHEENCS, RVT
== END | disposition home or self-care (01) ==
LOC: CVS 08:58
PROVIDERS: PCP Family Medicine; Referring Provider Nurse Practitioner Gerontology; Visit Provider Nurse Practitioner Gerontology
DX: I48.91 Unspecified atrial fibrillation (principal); I51.89 Other ill-defined heart diseases
CPT/HCPCS: 93308